=== PATIENT | male | born 2000 | race Caucasian/White ===

== ENCOUNTER → 2019-12-03 | Outpatient (CLI) | payer OTHER ==
--- NOTE | 2019-12-07 10:33 | EEG ---
DATE OF EE12/03/2019 REFERRING PHYSICIAN: October DIAGNOSIS: Seizure. EEG NUMBER: [id number] HISTORY: Patient is a 18-year-old male with frequent headaches, episodes of staring and blanking out, loss of attention, loss of balance. This EEG was done to rule out epileptic potential. He is currently taking no medications. TECHNICAL DESCRIPTION: This digital EEG was recorded by 21 scalp, ear and two EKG electrodes and was reviewed in bipolar and referential montages following reformatting in 10-20 international electrode placement system. INTERPRETATION: Patient was noted to be in awake and drowsy states during this EEG. Resting awake background rhythm consisted of well-formed posterior dominant rhythm with anterior/posterior gradient comprising of 10 Hz alpha activity measuring 15-40 microvolts in amplitude, which was symmetric and reactive to eye opening. Attenuation of posterior dominant rhythm was seen during transition into drowsiness. No sleep was achieved. Hyperventilation elicited theta slowing of background rhythm bilaterally and symmetrically. Photic stimulation remained unremarkable. EKG revealed normal sinus rhythm. No focal, lateralizing or epileptiform abnormalities were seen. No relevant clinical activity was noted. CONCLUSION: This EEG in awake, drowsy states is within normal limits.
== END ==
LOC: M SLEEP 08:53
PROVIDERS: ATTEND Physician Assistant
DX: R56.9 Unspecified convulsions (principal)